=== PATIENT | female | born 1985 | race Caucasian/White ===

== ENCOUNTER → 2016-10-22 | Outpatient (CLI) | payer BC ==
--- NOTE | 2016-10-22 23:00 | CONS ---
DATE OF CONSULTATION: CONSULTATION/NEW PATIENT EVALUATION HISTORY OF PRESENT ILLNESS/SLEEP-WAKE EVALUATION: 30-year-old lady has been evaluated in the sleep center for snoring and awakenings from sleep in the middle of night. Possible obstructive sleep apnea-hypopnea syndrome. SLEEP SCHEDULE: Patient's usual sleep schedule from 8 or 9:00 p.m. until 5:20 a.m., on working days and from around 10 or 11:00 p.m. until 7:00 a.m. on weekends. FALLING ASLEEP: Usually no problem with falling asleep at all. She does have TV in bedroom. DURING SLEEP: She wakes up from sleep several times and usually after awakenings between 2 and 4 she cannot fall asleep again for several hours. She may have episodes of nocturia once or maybe ( ). DURING THE DAY/WAKE STATE: In the morning she wakes up tired, worrying about her sleep. [place] Sleepiness Scale today is 8. PAST MEDICAL HISTORY: None. PAST SURGICAL HISTORY: Cysts removed from the back of the neck. MEDICATIONS: control pills. SOCIAL HISTORY: Negative for smoking, alcohol consumption is occasional. REVIEW OF SYSTEMS: Awakenings from sleep. Sometimes sleepiness during the day. The patient may take naps in the afternoon time. No fevers. No double vision. No recent chest pain. No shortness of breath. No abdominal pain. No bleeding episodes. No blood in urine. No seizure episodes. FAMILY HISTORY: Hypertension, heart problems, sleep apnea, snoring, diabetes, thyroid problems. PHYSICAL EXAMINATION: GENERAL: A 30-year-old lady without distress. VITAL SIGNS: BP 115/67, HR 78, RR 16. Height 5 feet and 5, weight 169.0, BMI 25.9, neck 13 inches in circumference. Temp 98.3. Oxygen saturation at room air 94%. Oropharynx extremely low position of soft palate. NECK: Supple. No JVD. Thyroid is not palpable. LUNGS: Clear to percussion and to auscultation. Good air exchange. No wheezing or rhonchi. HEART: S1, S2 regular. No murmurs, gallops or rubs. ABDOMEN: Soft and nontender. Bowel sounds are present. No organomegaly appreciated. EXTREMITIES: No clubbing or cyanosis. MAINTENANCE CONTROLLER: Awake, alert, and oriented x3. Cranial nerves 2 to 7 intact. There is no fasciculation or atrophy noted. No focal deficits observed. IMPRESSION: 1. Snoring, awakenings multiple times from sleep, low position of soft palate, sleepiness during the day, obstructive sleep apnea-hypopnea syndrome. 2. Status post cyst removed from the back of the neck. 3. Difficulties to fall asleep after awakening in the middle of the night secondary to episodes of worrying. PLAN: 1. Will start with a home sleep apnea test for evaluation of patient's breathing during sleep. 2. CPAP/BiPAP titration if sleep study confirms obstructive sleep apnea-hypopnea syndrome. 3. Preferable position during sleep on the side. 4. No driving if patient feels any sleepiness. Patient is aware of civil and criminal liability for unsafe driving. 5. I will see patient for follow-up visit to explain results of the testing and following plan. 6. Psychological techniques for treatment of insomnia, including worry time, paradoxical intention. Sincerely, Alan Reid MD, PhD, FAASM. Diplomat of [place] [employer], Sleep Medicine Board by [place] [employer] [place] [employer] Steward/Stewardess Chief [employer] [facility]
== END | disposition home or self-care (01) ==
LOC: SLEEP 15:03
PROVIDERS: ATTEND Internal Medicine
DX: G47.33 Obstructive sleep apnea (adult) (pediatric) (principal); Z98.890 Other specified postprocedural states
CPT/HCPCS: 99201

== ENCOUNTER → 2016-12-10 | Outpatient (CLI) | payer BC ==
--- NOTE | 2016-12-10 20:55 | PN ---
DATE OF SERVICE: 12/10/2016 This patient is a 31-year-old lady who has been followed in the sleep center for problem with her sleep related to difficulties initiating sleep and some awakenings from sleep. We discussed results of her home sleep apnea test in detail. Analyzing time was 7 hours 23 minutes. Apnea-hypopnea index was 2.0 with normal oxygen above 90%. Recently patient started to use some psychological techniques for treatment of insomnia. She sleeps better. She changed her time in bed to a little bit later time, and with these changes, according to her, she sleeps better and feels better during the day. Ellis Sleepiness Scale today is in the range between 8 and 9. MEDICATIONS: control pills. PHYSICAL EXAMINATION: Patient in no distress. VITAL SIGNS: BP 121/75, HR 72, RR 16. Height 5 feet 8 inches. Weight 170. BMI 25.8. Oxygen saturation at room air 99%. HEENT: PERRLA, EOMI. Evaluation of oropharynx showed tongue protrudes midline; short distance between soft palate and posterior pharyngeal wall. Vertical position of soft palate. Moderately low. NECK: Supple. No JVD. Thyroid is not palpable. LUNGS: Clear to percussion and to auscultation. Good air exchange. No wheezing or rhonchi. HEART: S1, S2 regular. No murmurs, gallops or rubs. ABDOMEN: Soft and nontender. Bowel sounds are present. No organomegaly appreciated. EXTREMITIES: No clubbing or cyanosis. CLINICAL LABORATORY MANAGER: Awake, alert, and oriented x3. Cranial nerves 2 to 7 intact. There is no fasciculation or atrophy noted. No focal deficits observed. IMPRESSION: 1. No significant respiratory abnormalities were documented during the sleep study. 2. History of difficulties with initiating sleep and some awakenings with difficulties initiating sleep after that. At present patient's sleep has improved. She changed her bedtime to a later time and she also is following different psychological techniques which we discussed. She will continue to use these techniques in the future. 3. Watching weight. 4. Sleep hygiene with regular time in bed for 7-1/2 hours. 5. No driving if feeling any sleepiness. 6. Preferable position during sleep on the side. Patient will return to the sleep center if she has any problems. Sincerely, Alan Reid MD, PhD, FAASM. Diplomat of [place] [employer], Sleep Medicine Board by [place] [employer], [place] [employer]
== END | disposition home or self-care (01) ==
LOC: SLEEP 15:17
PROVIDERS: ATTEND Internal Medicine
DX: G47.00 Insomnia, unspecified (principal)

== ENCOUNTER 2018-08-20 05:20 | Inpatient (IN) | payer BC ==
[2018-08-20] MEDS ORDERED: CARBOPROST TROMETHAMINE 250 MCG/ML 1 ML AMP IM PRN (05:34)
[2018-08-20] MEDS ORDERED: METHYLERGONOVINE 0.2 MG/ML 1 ML AMP IM PRN (05:34)
[2018-08-20] MEDS ORDERED: LIDOCAINE 0.5% (PF) 5 MG/ML (50 ML SDV) SQ PRN (05:34)
[2018-08-20] MEDS ORDERED: TERBUTALINE 1 MG/ML VIAL SQ PRN (05:34)
[2018-08-20] MEDS ORDERED: OXYTOCIN 10 UNIT/ML 1 ML VIAL IM PRN (05:34)
[2018-08-20] MEDS ORDERED: BUTORPHANOL 1 MG/ML 1 ML VIAL IV PRN (05:35)
[2018-08-20 06:11] VITALS: BMI 31.1
[2018-08-20] MEDS: OXYTOCIN 20 UNITS/1000 ML NS 1,000 ML IV SCH (06:25)
[2018-08-20] MEDS: LACTATED RINGERS 1,000 ML IV SCH ×3 (06:25→22:22)
[2018-08-20 07:14] LABS: Basophils % (A) 0 %; Eosinophils # (A) 0.2 k/uL (0-0.7); Eosinophils % (A) 3 %; HCT 35.7 % (34.0-46.0); HGB 11.7 gm/dL (11.4-16.0); Lymphocytes # (A) 1.2 k/uL (1.0-4.8); Lymphocytes % (A) 18 %; MCH 30.3 pg (25.0-35.0); MCHC 32.7 g/dL (31.0-37.0); MCV 92.6 fL (80.0-100.0); Mean Platelet Volume 8.9; Monocytes # (A) 0.5 k/uL (0-1.0); Monocytes % (A) 7 %; Neutrophils # (A) 4.7 k/uL (1.3-7.7); Neutrophils % (A) 69 %; Platelet Count 171 k/uL (150-450); RBC 3.86 m/uL (3.80-5.40); RDW 14.3 % (11.5-15.5); WBC 6.8 k/uL (3.8-10.6)
--- NOTE | 2018-08-20 13:01 | P.HPOB ---
History of Present Illness H&P Date: 08/20/18 This is a 32-year-old white female 2 para 0010 EDC 08/19/2018 at 40 and one sevenths weeks' gestation. Patient presented with a history of suspected leaking fluid, clear, at 0430 hours. She was having mild irregular uterine contractions to follow. Fetus is been active throughout the . She denies vaginal bleeding. history significant for group B strep cultures negative, blood type O- , rubella status immune. VDRL testing, hepatitis B surface antigen, HIV testing , urine culture all negative. One-hour Glucola 110. Gonorrhea and chlamydia cultures negative. Past medical history is significant for irritable bowel syndrome, and abnormal Pap smears in the past. Past surgical history significant for colposcopy, and colonoscopy. Current medications vitamins daily. Family history significant for hypothyroidism, breast cancer and stroke. ALLERGIES none known. 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 On exam this is a pleasant white female, 5 foot 7-1/2 inches, 205 pounds, blood pressure 14 8/94 on admission, 120s over 80 since. Gen. physical exam is within normal limits. Chest is clear in all higgins. Extremities reveal no edema. Cervix at time of this dictation is 2-3 cm dilated, 80% effaced, posterior, vertex, -1. There are membranes noted on the cervix, artificial amniorrhexis reveals clear fluid. heart rate in the 130s to 140s with frequent accelerations, consistent with reactive NST. Impression: 40 and one sevenths weeks intrauterine , early spontaneous labor. All signs reassuring. Patient requesting epidural at this time, anesthesia at the bedside. Plan: Continue close maternal and surveillance. Anticipating normal spontaneous vaginal delivery. Review of Systems Negative except as in HPI Constitutional: Reports as per HPI Past Medical History Past Medical History: No Reported History Additional Past Medical History / Comment(s): Irritable bowel syndrome History of Any Multi-Drug Resistant Organisms: None Reported Additional Past Surgical History / Comment(s): [place] tooth extraction Past Anesthesia/Blood Transfusion Reactions: No Reported Reaction Past Psychological History: No Psychological Hx Reported Smoking Status: Never smoker Past Drug Use History: None Reported - Past Family History Mother Family Medical History: Thyroid Disorder Medications and Allergies Home Medications Medication Instructions Recorded Confirmed Type No.77/Iron Asp Gly/FA 1 each PO DAILY 08/20/18 08/20/18 History [Prenate Star Tablet] Allergies Allergy/AdvReac Type Severity Reaction Status Date / Time No Known Allergies Allergy Verified 08/20/18 05:26 Exam Vital Signs Temp Pulse Resp BP Pulse Ox 08/20/18 05:28 96.5 F L 75 16 148/94 100 Intake and Output 08/19/18 08/20/18 08/20/18 22:59 06:59 14:59 Other: # Voids 1 Weight 93.123 kg See dictation under HPI please Results Result Diagrams: 08/20/18 06:28 Assessment and Plan Assessment: 40 and one sevenths week intrauterine , early spontaneous labor. All signs reassuring. Plan: Continue oxytocin augmentation per hospital protocol. Epidural being placed at this time per patient request. Continue close maternal and surveillance. Anticipating normal spontaneous vaginal delivery. Time with Patient: Less than 30
[2018-08-20] MEDS ORDERED: CITRIC ACID-SODIUM CITRATE 15 ML CUP PO ONE (19:12)
[2018-08-20] MEDS ORDERED: ceFAZolin IN SWFI 2 GM/20 ML SYRINGE IVP ONE (19:12)
[2018-08-20] MEDS ORDERED: ONDANSETRON 4 MG/2 ML VIAL ONE (19:29)
[2018-08-20] MEDS ORDERED: ceFAZolin 1,000 MG VIAL ONE (19:29)
[2018-08-20] MEDS ORDERED: OXYTOCIN 10 UNIT/ML 1 ML VIAL ONE (19:29)
[2018-08-20] MEDS ORDERED: MORPHINE SULFATE (PF) 0.3 MG/0.3 ML SYR ONE (19:29)
[2018-08-20] MEDS ORDERED: KETOROLAC 30 MG/ML 1 ML VIAL ONE (19:29)
[2018-08-20] MEDS ORDERED: ACETAMINOPHEN TAB 325 MG TAB PO PRN (20:23)
[2018-08-20] MEDS ORDERED: diphenhydrAMINE 50 MG/ML 1 ML VIAL IVP PRN ×3 (20:23→21:38)
[2018-08-20] MEDS ORDERED: NALOXONE 0.4 MG/ML 1 ML VIAL IV PRN ×2 (20:23→21:38)
[2018-08-20] MEDS ORDERED: diphenhydrAMINE 25 MG CAP PO PRN (20:23)
[2018-08-20] MEDS ORDERED: HYDROcodone/APAP 5-325MG 1 EACH TAB PO PRN (20:23)
[2018-08-20] MEDS ORDERED: METOCLOPRAMIDE 5 MG/ML 2 ML VIAL IVP PRN (20:23)
[2018-08-20] MEDS ORDERED: SIMETHICONE 80 MG CHEWABLE PO PRN (20:23)
[2018-08-20] MEDS ORDERED: diphenhydrAMINE 50 MG CAP PO PRN (20:23)
[2018-08-20] MEDS ORDERED: ONDANSETRON 4 MG/2 ML VIAL IVP PRN (20:23)
[2018-08-20] MEDS ORDERED: ZOLPIDEM 5 MG TAB PO PRN (20:23)
--- NOTE | 2018-08-20 20:23 | P.OP ---
Date of Procedure: 08/20/18 Preoperative Diagnosis: Arrest of dilation, 40 and one sevenths weeks' gestation. Postoperative Diagnosis: Same, left occiput posterior. Procedure(s) Performed: Primary low transverse section Anesthesia: epidural Surgeon: Rhoda Peralta Change Of Address Clerk #1: Matthew Patton Estimated Blood Loss (ml): 500 IV fluids (ml): 1,000 Urine output (ml): 300 Pathology: none sent Condition: stable Disposition: PACU Description of Procedure: Patient is allowed to labor throughout the day. Despite maximal oxytocin concentrations, strong regular uterine contractions, she had arrest of dilation at 5-6 cm. Decision was made to proceed with primary low transverse section. Antibiotics are given. Vaginal prep was performed. Rodriguez catheter placed to direct drainage. Bicitra given. Epidural was topped off. Patient is brought to the operating suite and placed in the dorsal supine position. Left lateral uterine displacement is given. The abdomen is prepped and draped in the usual sterile fashion. The appropriate timeout is performed to assure proper patient and procedural identification. Analgesia is checked and noted to be adequate. A low transverse skin incision is made this is carried down through the subcutaneous tissue to the fascia. Fascia is isolated , scored and extended bilaterally with curved Graves scissors. Peritoneum is next identified and incised, there is no bowel or bladder involvement. Bladder flap is placed over the dome of the bladder and a bladder flap was created with Metzenbaum scissors. Bladder blade is placed over the bladder and care is taken at all times to avoid bladder and/or ureteral injury. A low transverse uterine incision is made in this is extended with blunt dissection. 's head is delivered in the left occiput posterior position. The oropharynx, nasopharynx, and external nares were all bulb suctioned. Patient is officially delivered a liveborn female infant at 1953 hours. Umbilical cord is doubly clamped and ligated, she is handed to waiting nurses for evaluation where scores of 8 and 9 at one and 5 minutes respectively were given. The placentas delivered manually, it is inspected and noted to be intact with trivascular cord at 1954 hrs. Uterus is swept clean with a sterile sponge to avoid any retained products of conception. Uterus is externalized. Tubes and ovaries appear normal to inspection. Uterus is closed in a two-step fashion, first layer running locking, second layer imbricated, both with 0 Vicryl suture. Excellent reapproximation is noted. Bilateral gutters are inspected and cleaned. Uterus is gently placed back into the abdominal cavity. Uterine incision is again clean and dry. Peritoneum is allowed to close by secondary intention. Fascia is closed in a running stitch of 0 Vicryl with over ligation in the midline. Subcutaneous tissue is irrigated, clean and dry. It is reapproximated with 3-0 Vicryl in a running stitch. 4-0 undyed Monocryl sutures used for final skin closure in a subcuticular manner. Steri-Strips and Mastisol are applied to the wound. Uterus is massaged for a small amount of clot. All sponge needle and enhancement counts are correct at the end of the procedure. Patient is brought back to the recovery room in very good condition. Stable vital signs are noted, blood pressure 138/62, pulse 100, respirations 16, 100% O2 saturation. Rodriguez is noted to be draining clear urine. Total estimated blood loss 500 mL's. Patient and her family are allowed to begin the bonding experience in the LDR. weighs 8 lbs. 11 oz. or 3930 g.
[2018-08-20] MEDS ORDERED: MORPHINE SULFATE 2 MG/ML SYRINGE IVP PRN (21:38)
[2018-08-21] MEDS ORDERED: Rhogam IMMUNE GLOBULIN 1,500 UNIT/1 ML IM ONE (04:07)
[2018-08-21] MEDS: LACTATED RINGERS 1,000 ML IV SCH (04:22)
[2018-08-21] MEDS: OXYTOCIN 20 UNITS/1000 ML NS 1,000 ML IV SCH (04:28)
[2018-08-21 06:44] LABS: Basophils % (A) 0 %; Eosinophils # (A) 0.1 k/uL (0-0.7); Eosinophils % (A) 1 %; HGB 10.7 gm/dL (11.4-16.0); Lymphocytes # (A) 0.9 k/uL (1.0-4.8); Lymphocytes % (A) 8 %; MCH 31.1 pg (25.0-35.0); MCHC 34.4 g/dL (31.0-37.0); MCV 90.3 fL (80.0-100.0); Monocytes # (A) 0.3 k/uL (0-1.0); Monocytes % (A) 3 %; Neutrophils # (A) 10.1 k/uL (1.3-7.7); Neutrophils % (A) 88 %; Platelet Count 152 k/uL (150-450); RBC 3.43 m/uL (3.80-5.40); RDW 14.4 % (11.5-15.5); WBC 11.5 k/uL (3.8-10.6)
[2018-08-21] MEDS: IBUPROFEN 600 MG TAB PO PRN ×3 (07:06→19:19)
[2018-08-21] MEDS: SENNOSIDES-DOCUSATE SODIUM 1 EACH TAB PO SCH ×2 (08:34→19:28)
--- NOTE | 2018-08-21 11:18 | P.PN ---
Subjective Progress Note Date: 08/21/18 Principal diagnosis: Postoperative day #1 Slept well, no flatus. Pain well tolerated. Minimal to moderate lochia rubra. Objective - Vital Signs Vital signs: Vital Signs Temp 98.3 F 08/21/18 08:00 Pulse 95 08/21/18 08:00 Resp 16 08/21/18 10:00 BP 107/74 08/21/18 08:00 Pulse Ox 97 08/21/18 04:00 Intake & Output 08/20/18 08/21/18 08/21/18 18:59 06:59 18:59 Intake Total 2600 Output Total 1550 Balance 1050 Intake: IV 1000 Intake, IV Titration 1600 Amount Lactated Ringers 1,000 ml 600 @ 125 mls/hr IV .Q8H LÓPEZ Rx#:[id number] Oxytocin 20 Units/1000 ml 1000 Ns 1,000 ml @ 1 MILLIUNIT/MIN 3 mls/hr IV .Q24H LÓPEZ Rx#:[id number] Output: Urine 1050 Uretheral (Rodriguez) 500 Estimated Blood Loss 500 Other: Voiding Method Indwelling Catheter # Voids 1 0 - Constitutional General appearance: Present: average body habitus, cooperative - EENT Eyes: Present: PERRLA - Neck Neck: Present: normal ROM Thyroid: bilateral: normal size - Respiratory Respiratory: bilateral: CTA - Cardiovascular Rhythm: regular - Gastrointestinal General gastrointestinal: Present: normal bowel sounds - Integumentary Integumentary: Present: normal - Neurologic Neurologic: Present: CNII-XII intact - Musculoskeletal Musculoskeletal: Present: gait normal, strength equal bilaterally - Psychiatric Psychiatric: Present: A&O x's 3, appropriate affect, intact judgment & insight - Labs CBC & Chem 7: 08/21/18 06:33 Labs: Abnormal Lab Results - Last 24 Hours (Table) 08/21/18 Range/Units 06:33 WBC 11.5 H (3.8-10.6) k/uL RBC 3.43 L (3.80-5.40) m/uL Hgb 10.7 L (11.4-16.0) gm/dL Hct 31.0 L (34.0-46.0) % Neutrophils # 10.1 H (1.3-7.7) k/uL Lymphocytes # 0.9 L (1.0-4.8) k/uL Assessment and Plan Assessment: Doing well postoperative day #1 Plan: Advance diet and activity. Likely discharge home tomorrow. Begin ferrous sulfate once daily for mild postoperative anemia. Time with Patient: Less than 30
[2018-08-21] MEDS: FERROUS SULFATE 325 MG TAB PO SCH (18:23)
[2018-08-21] MEDS ORDERED: ROPIVACAINE 100 MG, fentaNYL (PF) 200 MCG in SODIUM CHLORIDE 0.9% 76 ML EPIDURAL ONE (20:12)
--- NOTE | 2018-08-21 20:15 | P.PN ---
Progress Note - Text 08/21 917 am 32-year-old female status post by Dr. Peralta. Patient has an epidural catheter for the operation clinic was bolused with Duramorph. Patient seen this morning she is comfortable with no complaints of nausea vomiting. She has mild pruritus. Doing well
[2018-08-21 21:12] VITALS: RESP 16
[2018-08-22 00:49] VITALS: TEMP 98.3
[2018-08-22] MEDS: FERROUS SULFATE 325 MG TAB PO SCH (07:36)
[2018-08-22] MEDS: IBUPROFEN 600 MG TAB PO PRN (07:36)
--- NOTE | 2018-08-22 08:51 | P.DS ---
Providers Date of admission: 08/20/18 05:35 Expected date of discharge: 08/22/18 Attending physician: Leo Loyd Primary care physician: Stated None - Discharge Diagnosis(es) (1) S/P section Current Visit: Yes Status: Acute Hospital Course: The patient is a 32-year-old 2 para 0010 admitted at 40 and one sevenths weeks by good dating parameters. She is admitted with documented spontaneous rupture of membranes of clear fluid. Her has been entirely uncomplicated and group B strep status is negative. She was Rh- and received RhoGAM at 28 weeks. On labor and delivery, she had Pitocin augmentation started and an epidural catheter placed. She made progress to approximately 6 cm of dilation at which time she arrested further dilation and descent. She was taken the operating room where she was delivered of a viable 8 lbs. 11 oz. baby girl with Apgars of 8 at 1 minute and 9 at 5 minutes. Her postoperative course has been unremarkable vital signs remaining stable and her temperature was afebrile throughout. She was deemed stable for discharge on postoperative day #2 was discharged home to follow-up in the office in 2 weeks for an incision check and 6 weeks routinely. Discharge instructions included calling for any significantly increased bleeding or foul-smelling lochia, significantly increased fever or abdominal pain, perineal complaints, breast complaints, incisional complaints, or anything else that concerned her. She is additionally instructed to have nothing in the vagina for at least 6 weeks time to include intercourse. She she was also instructed to do no heavy lifting over the next 6 weeks and to abstain from any driving until off of all pain medications or 2 weeks' time, whichever came first. She understood her instructions and agrees follow up as noted above. Discharge medications included [id number] analgesic pain medications as well as continued vitamins as she has opted to breast-feed. She additionally was given a prescription for Aguirre's nipple cream to be used as needed. Maternal blood type is O- and rubella status is immune. Discharge hemoglobin and hematocrit were 10.7 and 31.0 respectively. Procedures: #1. Pitocin augmentation #2. Epidural analgesia #3. Primary low-transverse section Patient Condition at Discharge: Good Plan - Discharge Summary New Discharge Prescriptions: No Action No.77/Iron Asp Gly/FA [Prenate Star Tablet] 1 each PO DAILY Discharge Medication List No.77/Iron Asp Gly/FA [Prenate Star Tablet] 1 each PO DAILY 08/20/18 [ History] Follow up Appointment(s)/Referral(s): Leo Loyd MD [STAFF PHYSICIAN] - 2 Weeks Discharge Disposition: HOME SELF-CARE
[2018-08-22 09:34] VITALS: BP 132/79; PULSE 84
[2018-08-22] MEDS: SENNOSIDES-DOCUSATE SODIUM 1 EACH TAB PO SCH (09:35)
== END 2018-08-22 11:05 | disposition home or self-care (01) | DRG 788 ==
LOC: FBPOP 05:20 → 4FBP 05:35
PROVIDERS: ADMIT Obstetrics & Gynecology; ATTEND Obstetrics & Gynecology
PROC: 10D00Z1 Extraction of Products of Conception, Low, Open Approach (ICD-10-PCS; principal; 2018-08-20 19:05)
DX: O99.62 Diseases of the digestive system complicating childbirth (principal); O62.0 Primary inadequate contractions; O99.72 Diseases of the skin and subcutaneous tissue complicating childbirth; K58.9 Irritable bowel syndrome, unspecified; O26.893 Other specified pregnancy related conditions, third trimester; L29.9 Pruritus, unspecified; Z37.0 Single live birth; Z3A.40 40 weeks gestation of pregnancy; Z67.41 Type O blood, Rh negative; Z80.3 Family history of malignant neoplasm of breast; Z82.3 Family history of stroke; Z83.49 Family history of other endocrine, nutritional and metabolic diseases
CPT/HCPCS: 59025; 84112; 85025; 85461; 86850; 86900; 86901; 99213

== ENCOUNTER → 2024-02-15 | Outpatient (CLI) | payer BC ==
--- NOTE | 2024-02-16 08:52 | MM ---
Reason for Exam: Screening (asymptomatic). Baseline mammogram. Patient History: Menarche at age 10. First Full-Term at age 32. Late child-bearing (after 30). Patient has history of breast feeding. Patient used Hormonal Contraceptives for 15 years. Paternal grandmother had breast cancer at or over age 50. Last menstrual period: 02/02/2024 Risk Values: Lacey 5 year model risk: 0.8%. NCI Lifetime model risk: 13.6%. Prior Study Comparison: Patient's first Mammogram. Tissue Density: The breasts are heterogeneously dense, which may obscure small masses. Findings: Analyzed By CAD. There is no suspicious group of microcalcifications or new suspicious mass in either breast. Overall Assessment: Negative, BI-RAD 1 Management: Screening Mammogram of both breasts in 1 year. . Patient should continue monthly self-breast exams. A clinical breast exam by your physician is recommended on an annual basis. This exam should not preclude additional follow-up of suspicious palpable abnormalities. Note on Lacey scores and lifetime risk: 1. A Lacey score greater than 3% is considered moderate risk. If this is the case, consider specialist referral to assess eligibility for a risk reducing agent. 2. If overall lifetime risk for the development of breast cancer is 20% or higher, the patient may qualify for future screening with alternating mammogram and breast MRI. Electronically signed and approved by: Salvador Mehta M.D. Radiologis
== END | disposition home or self-care (01) ==
LOC: RADMAMWWP 07:31
PROVIDERS: ATTEND Obstetrics & Gynecology
DX: Z12.31 Encounter for screening mammogram for malignant neoplasm of breast (principal); R92.333 Mammographic heterogeneous density, bilateral breasts; Z80.3 Family history of malignant neoplasm of breast
CPT/HCPCS: 77063; 77067

== ENCOUNTER → 2024-04-11 | Outpatient (CLI) | payer BC ==
[2024-04-11 10:56] LABS: Basophils # (A) 0.05 X 10*3/uL (0.00-0.10); Eosinophils # (A) 0.32 X 10*3/uL (0.04-0.35); Eosinophils % (A) 6.2 %; HCT 39.7 % (37.2-46.3); HGB 12.9 g/dL (12.0-15.0); Lymphocytes # (A) 1.52 X 10*3/uL (0.90-5.00); Lymphocytes % (A) 29.3 %; MCH 29.6 pg (27.0-32.0); MCHC 32.5 g/dL (32.0-37.0); MCV 91.1 FL (80.0-97.0); Mean Platelet Volume 9.9 FL (9.5-12.2); Monocytes # (A) 0.42 X 10*3/uL (0.20-1.00); Monocytes % (A) 8.1 %; NRBC Per 100 WBC 0 X 10*3/uL (0.00-0.01); Neutrophils # (A) 2.85 X 10*3/uL (1.80-7.70); Platelet Count 271 X 10*3/uL (140-440); RBC 4.36 X 10*6/uL (4.10-5.20); WBC 5.18 X 10*3/uL (4.50-10.00)
[2024-04-11 11:01] LABS: Blood Urea Nitrogen 17.6 mg/dL (9.0-27.0); Glucose 90 mg/dL (70-110)
[2024-04-11 11:02] LABS: Carbon Dioxide 26.3 mmol/L (21.6-31.8); Chloride 103 mmol/L (96-109); Sodium 138 mmol/L (135-145)
== END | disposition home or self-care (01) ==
LOC: LABPAT 07:10
PROVIDERS: ATTEND Obstetrics & Gynecology Obstetrics
DX: Z01.812 Encounter for preprocedural laboratory examination (principal); N92.0 Excessive and frequent menstruation with regular cycle
CPT/HCPCS: 36415; 80051; 82565; 82947; 84520; 85025; 86850; 86900; 86901; 87086

== ENCOUNTER 2024-04-20 05:47 | Day surgery (SDC) | payer BC ==
[2024-04-13 10:53] VITALS: BMI 25.9
[~2024-04-20 05:47] MED LIST: LIDOCAINE 1% (10MG/ML) FOR IV START INTRADERMA PRN
[2024-04-20] MEDS: LACTATED RINGERS 1,000 ML IV SCH (06:37)
[2024-04-20] MEDS: ONDANSETRON 4 MG/2 ML VIAL IVP ONE (06:51)
[2024-04-20] MEDS: DEXAMETHASONE SOD PHOSPHATE 4 MG/ML 1 ML VIAL IV ONE (06:51)
[2024-04-20] MEDS: MIDAZOLAM 2 MG/2 ML VIAL IV PRN (06:58)
[2024-04-20] MEDS ORDERED: fentaNYL (PF) 50 MCG/ML 2 ML AMP IVP PRN (07:00)
[2024-04-20] MEDS ORDERED: HYDROmorphone 0.5 MG/0.5 ML SYRINGE IVP PRN (07:00)
--- NOTE | 2024-04-20 07:20 | P.ANPRN ---
Procedure Note - Anesthesia - Epidural/Spinal Spinal Time Out Performed: Yes Date of Procedure: 04/20/24 Procedure Start Time: 06:57 Procedure Stop Time: 07:10 Location of Patient: PreOp Indication: Acute Post-Operative Pain Sedation Type: Sedate with meaningful contact maintained Preparation: Sterile Dressing Position: Sitting Catheter: None Needle Guage: 25 Injectate: Bupivacaine 0.75% 5 mg, duramorph 0.3 mg, fentanyl 25 mcg Narrative: Back prepped and draped. 1% lidocaine 3 ml injected at L4-5 IS. After introducer, 25 g pencil tip needle to KIEL. + clear CSF. Medication slowly injected and subsequent aspiration confirms proper placement. Blood Aspirated: No Pain Paresthesia on Injection Noted: No Events: Uneventful and Well Tolerated
[2024-04-20] MEDS ORDERED: LIDOCAINE 1% INJ 10MG/ML (20 ML MDV) ONE (07:29)
[2024-04-20] MEDS ORDERED: GLYCOPYRROLATE 0.2 MG/ML 2 ML VIAL ONE (07:29)
[2024-04-20] MEDS ORDERED: ROCURONIUM 10 MG/ML (5 ML VIAL) IV ONE (07:29)
[2024-04-20] MEDS ORDERED: MORPHINE SULFATE (PF) 0.3 MG/0.3 ML SYR ONE (07:29)
[2024-04-20] MEDS ORDERED: MIDAZOLAM 2 MG/2 ML VIAL ONE (07:29)
[2024-04-20] MEDS ORDERED: HYDROmorphone (PF) 1 MG/ML ONE (07:29)
[2024-04-20] MEDS ORDERED: diphenhydrAMINE 50 MG/ML 1 ML VIAL ONE (07:29)
[2024-04-20] MEDS ORDERED: SUCCINYLCHOLINE CHLORIDE 200 MG/10 ML VIAL IV ONE (07:29)
[2024-04-20] MEDS ORDERED: NEOSTIGMINE 1 MG/ML 10 ML VIAL ONE (07:29)
[2024-04-20] MEDS ORDERED: PROPOFOL 10 MG/ML 20 ML VIAL IV ONE (07:29)
[2024-04-20] MEDS ORDERED: fentaNYL (PF) 50 MCG/ML 2 ML AMP ONE (07:29)
[2024-04-20] MEDS: BUPIVACAINE (PF) 0.25% 30 ML VIAL SQ ONE ×2 (08:33)
[2024-04-20] MEDS: LACTATED RINGERS 1,000 ML IV ONE (10:25)
[2024-04-20] MEDS: ONDANSETRON 4 MG/2 ML VIAL IVP PRN (18:40)
[2024-04-20] MEDS ORDERED: KETOROLAC 15 MG/ML 1 ML VIAL IM PRN (20:11)
[2024-04-20] MEDS: SIMETHICONE 80 MG CHEWABLE PO PRN (20:29)
[2024-04-20] MEDS: KETOROLAC 15 MG/ML 1 ML VIAL IVP PRN (20:29)
[2024-04-20] MEDS: SENNOSIDES-DOCUSATE SODIUM 1 EACH TAB PO SCH (21:29)
[2024-04-20] MEDS: ACETAMINOPHEN TAB 500 MG TAB PO SCH (21:30)
[2024-04-20] MEDS: IBUPROFEN 800 MG TAB PO SCH (21:30)
--- NOTE | 2024-04-21 07:00 | P.PN ---
Progress Note - Text 04/21/24 545am 38-year-old female status post vaginal hysterectomy. Patient received spinal Duramorph for postop pain control, patient seen and evaluated, she has a VAS of 0, she had complaints of nausea vomiting and pruritus both of which have subsided
[2024-04-21 07:24] LABS: Basophils % (A) 0 %; Eosinophils % (A) 1 %; HCT 33.5 % (34.0-46.0); HGB 10.8 gm/dL (11.4-16.0); Lymphocytes # (A) 0.9 k/uL (1.0-4.8); Lymphocytes % (A) 15 %; MCHC 32.3 g/dL (31.0-37.0); Mean Platelet Volume 7.4; Monocytes # (A) 0.5 k/uL (0-1.0); Monocytes % (A) 8 %; Neutrophils # (A) 4.4 k/uL (1.3-7.7); Neutrophils % (A) 74 %; Platelet Count 256 k/uL (150-450); RDW 12.7 % (11.5-15.5); WBC 5.9 k/uL (3.8-10.6)
[2024-04-21 08:46] VITALS: BP 106/64; PULSE 73; RESP 16; TEMP 98.3
--- NOTE | 2024-04-21 09:38 | P.DS ---
Providers Date of admission: 04/20/2024 Expected date of discharge: 04/21/24 Attending physician: Deanna Swenson Primary care physician: Sonya Dietz - Discharge Diagnosis(es) (1) Pelvic mass Current Visit: Yes Status: Acute (2) Uterine fibroid Current Visit: Yes Status: Acute (3) Enlarged uterus Current Visit: Yes Status: Acute Hospital Course: This is a 38-year-old that presented to the hospital for scheduled robotic assisted vaginal hysterectomy, bilateral salpingectomy, diagnostic cystoscopy. Patient had an ultrasound ordered after a pelvic exam revealed an enlarged pelvic mass. Uterus noted to be enlarged at 12 x 5 x 4 cm, and additional lateral fibroid of 13 x 10 x 10 was appreciated. Patient states menstrual cycles are noted to be heavy every 30 days. Patient was counseled on pelvic mass and need for hysterectomy. Patient stated understanding and wished to proceed with definitive treatment. 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 -0-1-1 Missed AB Primary low-transverse section Patient Condition at Discharge: Good Plan - Discharge Summary Discharge Rx Participant: Yes New Discharge Prescriptions: No Action Athletic Greens 1 dose PO DAILY Vitamin B-12 (Unknown Dose) 1 tab PO DAILY Vitamin K (Unknown Dose) 1 tab PO DAILY Discharge Medication List Athletic Greens 1 dose PO DAILY 04/13/24 [History] Vitamin B-12 (Unknown Dose) 1 tab PO DAILY 04/13/24 [History] Vitamin K (Unknown Dose) 1 tab PO DAILY 04/13/24 [History] Follow up Appointment(s)/Referral(s): Deanna Swenson DO [Doctor of Osteopathic Medicine] - 2 Weeks Patient Instructions/Handouts: Laparoscopic Hysterectomy (DC), Laparoscopic Hysterectomy (GEN) Activity/Diet/Wound Care/Special Instructions: No intercourse, tampons or tub baths. No heavy lifting greater than a gallon of milk. No driving for two weeks. Call with any fever, shakes or chills, with any pain not alleviated by over the counter meds, or with any questions or concerns. [id number] ibuprofen 600 mg or 3 tablets every 6 hours as needed for pain. Discharge Disposition: HOME SELF-CARE
--- NOTE | 2024-05-03 12:20 | P.OP ---
Date of Procedure: 04/20/24 Preoperative Diagnosis: Enlarged uterus, uterine fibroid Postoperative Diagnosis: Same Procedure(s) Performed: Robotic assisted vaginal hysterectomy, bilateral salpingectomy, diagnostic cystoscopy, myomectomy Anesthesia: JIMMY Surgeon: Deanna Swenson Crate Maker #1: Emily Dominguez Estimated Blood Loss (ml): 150 IV fluids (ml): 1,000 (LR) Urine output (ml): 250 (Clear yellow) Pathology: other (Uterus cervix bilateral fallopian tubes, uterine fibroid) Condition: stable Disposition: PACU Indications for Procedure: 38-year-old female with known pelvic mass, an ultrasound lateral 11 cm uterine fibroid was appreciated. Operative Findings: Enlarged uterus with normal ovaries bilaterally. Left lateral broad ligament fibroid peritonealized is appreciated Description of Procedure: Patient was taken back to the operating suite where general anesthesia was obtained without difficulty by the anesthesia department. She was prepped and draped in the normal sterile fashion the dorsolithotomy position. A Rodriguez catheter was placed under sterile technique. A weighted speculum was placed in the posterior vaginal vault the anterior lip of the cervix was visualized and grasped with a single-tooth tenaculum. The endocervical canal was then easily dilated and a Vcare was placed. The balloon was insufflated with air the Was placed snugly against the cervix and all instruments were removed from the patient's vaginal vault. Attention was then turned to the patient's abdomen where approximately 2 fingerbreadths above the umbilicus a small skin incision is made. Through this incision the Veress needle is placed. Once the Veress needle was deemed to be in the appropriate position with a drop of CO2 pressure with the insufflation of CO2 gas CO2 insufflation was allowed to occur. At this time an 8 mm trocar and sleeve was placed through the skin incision and toward the pneumoperitoneum. The above-noted findings are visualized. The additional port sites are now placed, 10 cm lateral 3 cm inferior to midline port these are 8 mm ports and placed under direct visualization. In the left upper quadrant a 12 mm skin incision is made and a 12 mm trocar and sleeve is placed under direct visualization. The uterus was then elevated and the broad ligament fibroid was evaluated. The left fallopian tube was elevated and the mesosalpinx was coa gulated and transected to the level of the utero-ovarian ligament. The utero- ovarian ligament was visualized coagulated and transected. Hemostasis was noted. The round ligament was noted coagulated and transected. The peritoneal sidewall was then dissected and the fibroid was elevated through the peritoneum. The ascending branch of the uterine artery was visualized on the left coagulated and transected. Multiple other accessory vessels were visualized coagulated and transected. The bladder flap was then created from the left using sharp and blunt dissection. The right fallopian tube was then elevated coagulated and transected to the level of the utero-ovarian ligament. The utero-ovarian ligament was coagulated transected and hemostasis was noted. The round ligament was visualized coagulated distally proximally and divided. The bladder flap from the right was then created using sharp and blunt dissection. The bladder was noted to be far from the operating field at this time. They centigrams the uterine artery was visualized coagulated and transected hemostasis was noted. Continued dissection of the peritoneal covering over the broad ligament fibroid was continued this fibroid was then elevated out of the posterior cul-de-sac and the posterior attachment to the uterus was coagulated and transected. At this time the only remaining attachment was a vaginal attachment therefore colpotomy incision was made in a circumferential fashion. This cervix and uterus were removed without difficulty. The fallopian tubes have been removed after transection through the 12 mm port. The uterine fibroid was then transected into 3 pieces and put into Endo Catch bags. The additional piece was then passed through the vaginal opening and dissected vaginally for removal. The Endo Catch bags were then removed from the patient's abdomen without difficulty. The pelvis was then copiously irrigated. The vaginal cuff was closed with multiple [id number] sutures of 0 Vicryl. Approximately 4 sutures were used to obtain closure. The pelvis was then irrigated once again hemostasis was appreciated. All instruments were then removed from the patient's abdomen. The robot was then undocked in the usual fashion. Attention was then turned to the patient's Rodriguez catheter which was noted to be draining clear yellow urine. The catheter was remove and a cystoscopy was pe rformed. The cystoscope was placed through the urethra and toward the bladder bladder bubble was appreciated a complete survey of the bladder revealed an intact cavity, both ureteral orifices were noted to be spilling clear yellow urine. At this time the cystoscope was removed and the Rodriguez catheter was replaced. Attention then turned to the abdomen where the skin incisions were closed with 4-0 Vicryl in a subcuticular fashion. Steri-Strips and sterile dressings were applied. All counts were noted be correct x 2 at the end of the procedure. Patient did tolerate procedure well and was taken the recovery room awake in stable condition.
== END 2024-04-21 10:08 | disposition home or self-care (01) ==
LOC: OR 05:47 → 4FBP 11:19 → OR 04-21 10:08
PROVIDERS: ATTEND Obstetrics & Gynecology Obstetrics
DX: D25.9 Leiomyoma of uterus, unspecified (principal); N92.0 Excessive and frequent menstruation with regular cycle; F10.90 Alcohol use, unspecified, uncomplicated
CPT/HCPCS: 58552; 81025; 85025; 88307; S2900